=== PATIENT | female | born 2000 | race Caucasian/White ===

== ENCOUNTER 2021-03-10 18:28 | Emergency (ER) | payer OTHER ==
[~2021-03-10] VITALS: Ht 157.5 cm; Wt 83.0 kg
[2021-03-10 18:30] VITALS: BP 122/68
--- NOTE | 2021-03-10 19:24 | PHYS DOC ---
Past History Past Medical History: Hypotension, Schizophrenia Additional Past Medical Histor: Autism, schizophrenia, developmental delay (NATACHACADE Webster APRN) Past Surgical History: Tonsillectomy, Other Additional Past Surgical Histo: foot surgery (CADE BAXTER APRN) Adult General Chief Complaint Chief Complaint: PSYCH EVALUATION HPI HPI Patient is a female with a history of suicidal ideations, autism, schizophrenia, developmental delay presenting to the ED today stating she is hearing voices that are telling her to harm herself and harm her sister. Patient states she has been hearing these voices for a long time. She states her plan to harm herself is cut her wrist with a sharp object. She is requesting to go to a psych facility. She lives at home with the sister who is the DPOA. (CADE BAXTER APRN) Review of Systems Review of Systems Constitutional: Denies fever or chills [] Eyes: Denies change in visual acuity, redness, or eye pain [] HENT: Denies nasal congestion or sore throat [] Respiratory: Denies cough or shortness of breath [] Cardiovascular: No additional information not addressed in HPI [] GI: Denies abdominal pain, nausea, vomiting, bloody stools or diarrhea [] : Denies dysuria or hematuria [] Musculoskeletal: Denies back pain or joint pain [] Integument: Denies rash or skin lesions [] Neurologic: Denies headache, focal weakness or sensory changes [] Psych: Reports hearing voices and SI All other systems were reviewed and found to be within normal limits, except as documented in this note. (CADE BAXTER MITTEN STITCHER) Allergies Allergies Allergies Coded Allergies Type Severity Reaction Last Updated Verified Penicillins Allergy Intermediate 03/10/21 Yes (CADE BAXTER APRN) Physical Exam Physical Exam Constitutional: Well developed, well nourished, no acute distress, non-toxic appearance. [] HENT: Normocephalic, atraumatic, bilateral external ears normal, oropharynx moist, no oral exudates, nose normal. [] Eyes: PERRLA, EOMI, conjunctiva normal, no discharge. [] Neck: Normal range of motion, no tenderness, supple, no stridor. [] Cardiovascular:Heart rate regular rhythm, no murmur [] Lungs & Thorax: Bilateral breath sounds clear to auscultation [] Abdomen: Bowel sounds normal, soft, no tenderness, no masses, no pulsatile masses. [] Skin: Warm, dry, no erythema, no rash. [] Back: No tenderness, no CVA tenderness. [] Extremities: No tenderness, no cyanosis, no clubbing, ROM intact, no edema. [] Neurologic: Alert and oriented X 3, normal motor function, normal sensory function, no focal deficits noted. [] Psychologic: Affect normal, judgement normal, mood normal. Very pleasant (CADE BAXTER APRN) Current Patient Data Vital Signs Vital Signs Date Time Temp Pulse Resp B/P (MAP) Pulse Ox O2 Delivery O2 Flow Rate FiO2 03/10/21 18:30 98.2 80 16 122/68 (86) 97 Lab Results Laboratory Tests Test 03/10/21 19:14 POC Urine HCG, Qualitative hcg negative (Negative) (CADE BAXTER APRN) EKG EKG [] (CADE BAXTER APRN) Radiology/Procedures Radiology/Procedures [] (CADE BAXTER APRN) Heart Score C/O Chest Pain: N/A Risk Factors: Risk Factors: DM, Current or recent (<one month) smoker, HTN, HLP, family history of CAD, obesity. Risk Scores: Risk Factors: DM, Current or recent (<one month) smoker, HTN, HLP, family history of CAD, obesity. (CADE BAXTER APRN) Course & Med Decision Making Course & Med Decision Making Pertinent Labs and Imaging studies reviewed. (See chart for details) This is a 20-year-old female patient presenting to the ED today with complaints of hearing voices telling her to promote self harm her sister. She has been hearing voices for a long time. 1924 Spoke with Roby from the PAT team, he is on the way to evaluate patient. 2057 Roby from the PAT team evaluated patient. Patient has an appointment with PCP tomorrow and [facility] at the beginning of March. Safety plan was established, discharged to home (CADE BAXTER APRN) Course & Med Decision Making Did not see or evaluate patient. Did not discuss patient with FUELS SALES REPRESENTATIVE. Agree with FUELS SALES REPRESENTATIVE's work-up and disposition per note (WILMER MARTINO MD) Dragon Disclaimer Dragon Disclaimer This electronic medical record was generated, in whole or in part, using a voice recognition dictation system. (CADE BAXTER APRN) Departure Departure: Impression: Primary Impression: Auditory hallucinations Additional Impression: Suicidal ideations Disposition: HOME / SELF CARE / HOMELESS Condition: STABLE Patient Instructions: Hallucinations and Delusions, Suicidal Feelings, How to Help Yourself Additional Instructions: Please follow-up with your primary care doctor tomorrow. Also follow-up [facility] in March as scheduled. Come back to the ED at any point symptoms worsen Problem Qualifiers CADE BAXTER APRN Mar 10, 2021 19:24 WILMER MARTINO MD Mar 10, 2021 21:12
[2021-03-10 19:32] LABS: BARBITURATES NEG (NEG); BENZODIAZEPINES NEG (NEG); CANNABINOIDS NEG (NEG); COCAINE NEG (NEG); METHADONE NEG (NEG); OPIATES NEG (NEG); PHENCYCLIDINE NEG (NEG)
[2021-03-10 19:33] LABS: AMPHETAMINE/METHAMPHETAMINE NEG (NEG)
[2021-03-10 19:34] LABS: BACTERIA,URINE 0 /HPF (0-FEW); BILIRUBIN,URINE NEG (NEG); CLARITY,URINE CLEAR; COLOR,URINE YELLOW; GLUCOSE,URINE NEG (NEG); NITRITE,URINE NEG (NEG); RBC,URINE 0 /HPF (0-2); SQUAMOUS EPITHELIAL CELL,UR MOD /LPF; UROBILINOGEN,URINE 0.2 mg/dL (0.2 mg/dL); WBC,URINE 0 /HPF (0-4)
[2021-03-10 19:52] LABS: BASO # 0.1 x10^3/uL (0.0-0.2); BASO % 1 % (0-3); EOS # 0.1 x10^3/uL (0.0-0.7); EOS % 1 % (0-3); HEMATOCRIT 39.8 % (36.0-47.0); HEMOGLOBIN 13.4 g/dL (12.0-15.5); LYMPH # 2.9 x10^3/uL (1.0-4.8); LYMPH % 26 % (24-48); MEAN CORPUSCULAR HEMOGLOBIN 28 pg (25-35); MEAN CORPUSCULAR HGB CONC 34 g/dL (31-37); MEAN CORPUSCULAR VOLUME 83 fL (79-100); MONO # 0.9 x10^3/uL (0.0-1.1); MONO % 8 % (0-9); NEUT # 7.4 x10^3uL (1.8-7.7); NEUT % 65 % (31-73); PLATELET COUNT 321 x10^3/uL (140-400); RED BLOOD COUNT 4.81 x10^6/uL (3.50-5.40); RED CELL DISTRIBUTION WIDTH 13.5 % (11.5-14.5); WHITE BLOOD COUNT 11.5 x10^3/uL (4.0-11.0)
[2021-03-10 20:10] LABS: SALIC 0.2 mg/dL (2.8-20.0)
[2021-03-10 20:11] LABS: ACETAMIN < 2.0 mcg/mL (10-30)
[2021-03-10 20:14] LABS: ALBUMIN 3.6 g/dL (3.4-5.0); CALCIUM 9.3 mg/dL (8.5-10.1); CREATININE 0.6 mg/dL (0.6-1.0); POTASSIUM 3.7 mmol/L (3.5-5.1); TOTAL BILIRUBIN 0.3 mg/dL (0.2-1.0); TOTAL PROTEIN 7.3 g/dL (6.4-8.2)
== END 2021-03-10 21:35 | disposition home or self-care (01) ==
LOC: ER 18:28
DX: R44.0 Auditory hallucinations (principal); R45.851 Suicidal ideations; F20.9 Schizophrenia, unspecified; Z20.822 Contact with and (suspected) exposure to COVID-19; Z88.0 Allergy status to penicillin
CPT/HCPCS: 36415; 80053; 80307; 80329; 81001; 81025; 83690; 85025; 87426; 99285; C9803; U0003; G0480

== ENCOUNTER 2021-07-12 13:49 | Emergency (ER) | payer OTHER ==
[~2021-07-12] VITALS: Ht 157.5 cm; Wt 86.0 kg
[2021-07-12 14:05] VITALS: BP 140/68
--- NOTE | 2021-07-12 14:55 | PHYS DOC ---
Past History Past Medical History: Hypotension, Schizophrenia Additional Past Medical Histor: Autism, schizophrenia, developmental delay/mentally handicapped Past Surgical History: Tonsillectomy, Other Additional Past Surgical Histo: foot surgery Alcohol Use: None General Adult HPI: HPI: Patient is a 21 year old female who presents with report of suicidal ideation. Patient is not incredibly forthcoming, but states she is always suicidal. She denies new or worsening thoughts of suicide, they are completely unchanged and consistent with her baseline. Patient states that were she to harm herself, she would "get a knife and cut [her] arm open." Patient has weekly group meeting and therapy at the [facility]. Patient claims she was at home alone prior to arrival and did not have access to a phone to contact her therapist. She states her therapist is not helping. Upon speaking to patient's brother in law, she was on her way home via arranged transportation from her weekly meeting at the [facility]. Review of Systems: Review of Systems: ROS negative or noncontributory except as mentioned in HPI. Allergies: Allergies: Allergies Coded Allergies Type Severity Reaction Last Updated Verified Penicillins Allergy Intermediate 03/10/21 Yes Physical Exam: PE: Constitutional: Well developed, well nourished, no acute distress, non-toxic appearance. HENT: Normocephalic, atraumatic, bilateral external ears normal, nose normal. Eyes: EOMI, conjunctiva normal, no discharge. Neck: Normal range of motion, no stridor. Skin: Warm, dry, no erythema, no rash. Extremities: No cyanosis, no clubbing, ROM intact, no edema. Neurologic: Alert and oriented, normal motor function, normal sensory function, no focal deficits noted. Psychologic: Affect erika, poor judgment, mood "I wanna go to [employer]." Current Patient Data: Vital Signs: VS - Last 72 Hours, by Label Date Time Temp Pulse Resp B/P (MAP) Pulse Ox O2 Delivery O2 Flow Rate FiO2 07/12/21 14:05 97.7 92 16 140/68 (92) 98 Heart Score: C/O Chest Pain: No Course & Med Decision Making: Course & Med Decision Making Pertinent Labs and Imaging studies reviewed. (See chart for details) Katey TRAN was consulted. She spoke to the patient and came up with an at home safety plan with patient's brother in law at bedside. Patient's actions and presentation today were precipitated by the refusal of sister and brother in law to allow the patient to have a pet hamster. Patient has adequate and documented follow up with outpatient therapy and other resources. Patient is medically clear and agrees to safety plan on discharge. Kailey Disclaimer: Kailey Disclaimer: This electronic medical record was generated, in whole or in part, using a voice recognition dictation system. Departure Departure: Impression: Primary Impression: Suicidal ideations Disposition: 01 HOME / SELF CARE / HOMELESS Condition: STABLE Referrals: SACHI JEROME MD (PCP) Patient Instructions: Suicidal Feelings, How to Help Yourself Additional Instructions: EMERGENCY DEPARTMENT GENERAL DISCHARGE INSTRUCTIONS Thank you for coming to [facility] (ED) today and trusting us with you care. We trust that you had a positive experience in our Emergency Department. If you wish to speak to the department management, you may call the director at [phone]. YOUR FOLLOW UP INSTRUCTIONS ARE FOLLOWS: 1. Follow up with your primary care doctor. If you do not have a primary doctor, please ask for a resource list of physicians or clinics that may be able to assist you with follow up care. 2. The emergency provider has interpreted your imaging studies, if any were ordered. The radiology logistic specialist also reviewed them. If there is a change in the findings, you will be notified in 48 hours when at all possible. 3. If a lab test or culture has been done, your results will be reviewed and you will be notified if you need a change in treatment. 4. Follow instructions verbalized to you and refer to the printouts if needed. ADDITIONAL INSTRUCTIONS AND INFORMATION: 1. Your care today has been supervised by a physician who is specially trained in emergency care. Many problems require more than one evaluation for a complete diagnosis and treatment. We recommend that you schedule your follow up appointment as recommended to ensure complete treatment of you illness or injury. If you are unable to obtain follow up care and continue to have a problem, or if your condition worsens, we recommend that you return to the ED. 2. We are not able to safely determine your condition over the phone nor are we able to give sound medical advice over the phone. For these safety reasons, if you call for medical advice we will ask you to come to the ED for further evaluation. 3. If you have any questions regarding these discharge instructions please call the ED at [phone]. SAFETY INFORMATION: In the interest of safety, wellness, and injury prevention; we encourage you to wear your seat belt, if you smoke; quite smoking, and we encourage family to use a protective helmet for bicycling and other sporting events that present an increased risk for head injury. IF YOUR SYMPTOMS WORSEN OR NEW SYMPTOMS DEVELOP, OR YOU HAVE CONCERNS ABOUT YOUR CONDITION; OR IF YOUR CONDITION WORSENS WHILE YOU ARE WAITING FOR YOUR FOLLOW UP APPOINTMENT; EITHER CONTACT YOUR PRIMARY CARE DOCTOR, THE PHYSICIAN WHOSE NAME AND NUMBER YOU WERE GIVEN, OR RETURN TO THE ED IMMEDIATELY. PHAM CAMACHO Jul 12, 2021 14:55
== END 2021-07-12 15:00 | disposition home or self-care (01) ==
LOC: ER 13:49
DX: R45.851 Suicidal ideations (principal); F20.9 Schizophrenia, unspecified; Z88.0 Allergy status to penicillin
CPT/HCPCS: 99285